=== PATIENT | male | born 1950 | race Caucasian/White ===

== ENCOUNTER 2016-08-03 17:43 | Emergency (ER) | payer MEDICARE ==
[~2016-08-03] VITALS: Ht 167.6 cm; Wt 56.7 kg
[~2016-08-03 17:43] MED LIST: 'PARAFON FORTE500 M1 PO; TRAMADOL HCL50 MG PO
[2016-08-03] MEDS ORDERED: HYDROCODONE BIT1 T11 PO (18:50)
== END 2016-08-03 18:59 | disposition home or self-care (01) ==
LOC: ED 17:43
DX: S82.891A Other fracture of right lower leg, initial encounter for closed fracture (principal); F17.200 Nicotine dependence, unspecified, uncomplicated; Z98.890 Other specified postprocedural states; W17.2XXA Fall into hole, initial encounter; Y93.89 Activity, other specified; Y92.89 Other specified places as the place of occurrence of the external cause; Y99.9 Unspecified external cause status

== ENCOUNTER → 2016-08-26 | Outpatient (CLI) | payer MEDICARE ==
[~2016-08-26] MED LIST changes: +HYDROCODONE BIT1 T11 PO
[2016-08-26 13:15] LABS: BILIRUBIN NEGATIVE (NEGATIVE); BLOOD NEGATIVE (NEGATIVE); CLARITY CLEAR (CLEAR); COLOR YELLOW (YELLOW); GLUCOSE NEGATIVE (NEGATIVE); KETONE NEGATIVE (NEGATIVE); LEUKO ESTERASE TRACE (NEGATIVE); NITRITE NEGATIVE (NEGATIVE); PROTEIN NEGATIVE (NEGATIVE); SPECIFIC GRAVITY <= 1.005 (1.005-1.030); UROBILINOGEN 0.2 E.U./dl (0.2-1.0)
[2016-08-26 13:32] LABS: BUN 3 mg/dl (7-24); CARBON DIOXIDE 28 mmol/L (21-32); CHLORIDE 106 mmol/L (98-107); EST GLOM FILT AFRICAN AMERICAN > 60 ml/min; GLUCOSE 95 mg/dL (65-99); POTASSIUM 4.5 mmol/L (3.5-5.1); SODIUM 142 mmol/L (136-145)
[2016-08-26 13:34] LABS: BASO # 0.1 10*3/uL (0.0-0.1); BASO % 0.9 % (0.0-1.0); EOS # 0.3 10*3/uL (0.0-0.4); EOS % 2.8 % (1.0-4.0); HEMATOCRIT 47.2 % (42.0-52.0); HEMOGLOBIN 16.1 g/dl (14.0-18.0); IG # 0.1 10*3/uL (0.0-0.1); LYMPH # 2.5 10*3/uL (1.3-4.4); LYMPH % 23.8 % (27.0-41.0); MEAN CELL VOLUME 99.4 fl (80.0-94.0); MEAN CORPUSCULAR HGB 33.9 pg (27.0-31.0); MEAN CORPUSCULAR HGB CONC 34.1 g/dl (33.0-37.0); MEAN PLATELET VOLUME 8.6 fl (9.6-12.3); MONO # 1.2 10*3/uL (0.1-1.0); MONO % 11.5 % (3.0-9.0); NEUT # 6.4 10*3/uL (2.3-7.9); NEUT % 60.2 % (47.0-73.0); PLATELET COUNT AUTOMATED 337 10*3/uL (130-400); RED BLOOD COUNT 4.75 10*6/uL (4.50-5.90); RED CELL DISTRI WIDTH 12.1 % (0-14.5); WHITE BLOOD COUNT 10.7 10*3/uL (4.8-10.8)
[2016-08-26 13:45] LABS: BACTERIA TRACE
[2016-08-26 14:04] LABS: HEMOGLOBIN A1c 5.5 % (4.8-5.6)
== END | disposition home or self-care (01) ==
LOC: LAB 11:09
PROVIDERS: Orthopaedic Surgery
DX: Z01.818 Encounter for other preprocedural examination (principal); R79.89 Other specified abnormal findings of blood chemistry; M85.80 Other specified disorders of bone density and structure, unspecified site; S82.401A Unspecified fracture of shaft of right fibula, initial encounter for closed fracture; Z87.891 Personal history of nicotine dependence; X58.XXXA Exposure to other specified factors, initial encounter; Y93.89 Activity, other specified; Y92.89 Other specified places as the place of occurrence of the external cause; Y99.8 Other external cause status

== ENCOUNTER → 2016-09-01 | Day surgery (SDC) | payer MEDICARE ==
[2016-08-26 11:43] VITALS: BP 174/86
[2016-09-01] VITALS (8 sets, daily range): BP systolic 143–177; BP diastolic 64–102
[~2016-09-01] VITALS: Ht 167.6 cm; Wt 59.0 kg
[~2016-09-01] MED LIST changes: +PERCOCET 325 MG1 TA5 PO; +ZOFRAN4 MG PO
--- NOTE | ~2016-09-01 | O ---
[place], [place] OPERATIVE NOTE NAME: MELISSA PRASAD [facility] #: [id number] UNIT #: [id number] ROOM: DOCTOR: CARMELO SALMERON DO BIRTHDATE: [birth year] DOS: 09/01/2016 PREOPERATIVE DIAGNOSIS: Right distal fibula fracture. POSTOPERATIVE DIAGNOSIS: Right distal fibula fracture. OPERATIVE PROCEDURE: Right distal fibula fracture open reduction and internal fixation. SURGEON: Carmelo Salmeron DO FIRST ASSISTANTS: Rochelle and Arielle. ANESTHESIA: OLIVIER Watkins. INDICATION: The patient is a 66-year-old male with a history of a right distal fibula fracture. The patient has had a delay in treatment while waiting on medical clearance as well as his inability to obtain preoperative lab and x-ray. Risks and benefits of the procedure were explained to the patient and his family preoperatively. The preoperative labs, x-rays and medical optimization were obtained. DESCRIPTION OF PROCEDURE: The right ankle was marked in the holding room. The patient was brought to the operative suite. The patient was placed supine on the operative table. A general anesthetic with endotracheal intubation was performed. The patient received Ancef 2 g IV piggyback. Timeout was performed. The right lower extremity was prepped and draped in the usual orthopedic manner. Extremity was elevated and the tourniquet was inflated to 350 mmHg. The lateral incision was marked with a marking pen and made sharply with a scalpel. Subcutaneous tissue was spread down to the level of the distal fibula. The fracture site was identified and cleared of any soft tissue or periosteal debris. The area was copiously irrigated with normal saline. Closed reduction was performed. A 6-hole Synthes 1/3rd tubular plate was bent to conform with the distal fibula. C-arm was used to confirm positioning and reduction. The proximal 3 holes of the plate were drilled and filled with 3.5 cortical screws, 16 mm, 18 mm, 18 mm. The distal portion of the plate was drilled and filled with 4.0 cancellous screw measuring 16 mm, 18 mm, 18 mm. The positioning of the screws and the fracture were evaluated under C arm. The ankle was taken through range of motion flexion, extension, inversion and eversion and found to be stable. The area was copiously irrigated with normal saline. The wound was closed in a layered fashion with 2-0 Vicryl followed by skin yeison. The area was injected with Marcaine 0.5% with epinephrine. Dressing was applied using Xeroform, 4 x 4s and a well-padded posterior splint. The tourniquet was released prior to application of the splint. The anesthetic was reversed. The patient was extubated and taken to recovery room in satisfactory condition. ESTIMATED BLOOD LOSS: 5 mL. [place], [place] OPERATIVE NOTE NAME: MELISSA PRASAD UNIT #: [id number] ROOM: DOCTOR: CARMELO SALMERON DO BIRTHDATE: [birth year] SPECIMENS: None. DRAINS: None. PACKING: None. COMPLICATIONS: None. IMPLANTS: Synthes 6-hole 1/3rd tubular plate, 3.5 mm cortical screws measuring 16 mm, 18 mm, 18 mm and 4.0 cancellous screws measuring 16 mm, 18 mm, 18 mm. CARMELO SALMERON DO CM:OPRECORD:OPERATIVE NOTE [id number] CARMELO SALMERON DO 09/07/16 0054 interface
== END | disposition home or self-care (01) ==
LOC: SDC 08-18 10:15
DX: S82.831A Other fracture of upper and lower end of right fibula, initial encounter for closed fracture (principal); X58.XXXA Exposure to other specified factors, initial encounter; Y93.9 Activity, unspecified; Y92.9 Unspecified place or not applicable; Y99.9 Unspecified external cause status; I10 Essential (primary) hypertension; F17.210 Nicotine dependence, cigarettes, uncomplicated; M85.80 Other specified disorders of bone density and structure, unspecified site; F10.20 Alcohol dependence, uncomplicated; Z98.890 Other specified postprocedural states

== ENCOUNTER 2016-09-13 14:15 | Emergency (ER) | payer MEDICARE ==
[~2016-09-13] VITALS: Ht 167.6 cm; Wt 56.7 kg
[2016-09-13] MEDS ORDERED: IBU-200200 MG PO (14:44)
[2016-09-13 15:21] LABS: BASO # 0.1 10*3/uL (0.0-0.1); BASO % 0.5 % (0.0-1.0); EOS # 0.2 10*3/uL (0.0-0.4); EOS % 1.3 % (1.0-4.0); HEMATOCRIT 50.3 % (42.0-52.0); HEMOGLOBIN 17.2 g/dl (14.0-18.0); IG # 0.1 10*3/uL (0.0-0.1); LYMPH # 2.1 10*3/uL (1.3-4.4); MEAN CELL VOLUME 98.1 fl (80.0-94.0); MEAN CORPUSCULAR HGB 33.5 pg (27.0-31.0); MEAN CORPUSCULAR HGB CONC 34.2 g/dl (33.0-37.0); MEAN PLATELET VOLUME 8.4 fl (9.6-12.3); MONO # 1.4 10*3/uL (0.1-1.0); NEUT # 10.3 10*3/uL (2.3-7.9); NEUT % 72.4 % (47.0-73.0); PLATELET COUNT AUTOMATED 352 10*3/uL (130-400); RED BLOOD COUNT 5.13 10*6/uL (4.50-5.90); WHITE BLOOD COUNT 14.2 10*3/uL (4.8-10.8)
[2016-09-13 15:29] LABS: PROTHROMBIN TIME 10.7 SECONDS (9.0-12.4)
[2016-09-13 15:45] LABS: ALKALINE PHOSPHATASE 66 U/L (45-117); BILIRUBIN, TOTAL 0.5 mg/dl (0.2-1.0); BUN 6 mg/dl (7-24); C-REACTIVE PROTEIN 0.49 MG/DL (0-0.3); CARBON DIOXIDE 24 mmol/L (21-32); CHLORIDE 104 mmol/L (98-107); CPK 66 U/L (39-308); EST GLOM FILT AFRICAN AMERICAN > 60 ml/min; GLUCOSE 98 mg/dL (65-99); MAGNESIUM 2.2 mg/dL (1.5-2.1); POTASSIUM 4.4 mmol/L (3.5-5.1); SGOT/AST 21 IU/L (3-35); SGPT/ALT 18 U/L (12-78); SODIUM 139 mmol/L (136-145); TOTAL PROTEIN 7.9 gm/dL (6.4-8.2); TROPONIN I 0.037 ng/ml (<0.045)
[2016-09-13] MEDS ORDERED: COREG3.125 MG PO (16:10)
== END 2016-09-13 16:16 | disposition home or self-care (01) ==
LOC: ED 14:15
PROVIDERS: Emergency Medicine
DX: I10 Essential (primary) hypertension (principal); M79.604 Pain in right leg; F17.200 Nicotine dependence, unspecified, uncomplicated

== ENCOUNTER → 2016-09-23 | Outpatient (CLI) | payer MEDICARE ==
[~2016-09-23] MED LIST changes: +COREG3.125 MG PO; +IBU-200200 MG PO
== END | disposition home or self-care (01) ==
LOC: ORTHO 13:41
DX: T81.4XXA Infection following a procedure, initial encounter (principal)

== ENCOUNTER → 2016-10-21 | Outpatient (CLI) | payer MEDICARE | END | disposition home or self-care (01) | LOC: ORTHO 03:02 | DX: S82.401D Unspecified fracture of shaft of right fibula, subsequent encounter for closed fracture with routine healing (principal); X58.XXXD Exposure to other specified factors, subsequent encounter ==

== ENCOUNTER → 2016-12-22 | Outpatient (CLI) | payer MEDICARE | END | disposition home or self-care (01) | LOC: ORTHO 00:22 | DX: S82.891D Other fracture of right lower leg, subsequent encounter for closed fracture with routine healing (principal); M25.471 Effusion, right ankle; X58.XXXD Exposure to other specified factors, subsequent encounter ==

== ENCOUNTER 2018-08-13 21:16 | Emergency (ER) | payer MEDICARE ==
[~2018-08-13] VITALS: Ht 167.6 cm; Wt 59.0 kg
--- NOTE | ~2018-08-13 | EKG ---
[place], [place] ELECTROCARDIOGRAM REPORT NAME: MELISSA PRASAD UNIT #: [id number] ROOM: DOCTOR: EPIPHANY DRAFT REPORT BIRTHDATE: [birth year] [facility] Test Date: 2018-08-13 Test Time: 21:26:24 Pat Name: MELISSA PRASAD Department: ER Room: Gender: Rigging Worker: : 1950 Requested By: ELVIE FERNANDES Order Number: [id number] Reading MD: Maddie Lin MD Measurements Intervals [place] Rate: 77 P: 69 [place]: 238 QRS: 46 QRSD: 90 T: 79 QT: 440 QTc: 499 Interpretive Statements Sinus rhythm Prolonged [place] interval Abnormal R-wave progression, early transition Abnormal inferior Q waves Repol abnrm suggests ischemia, diffuse leads Electronically Signed On 08-17-2018 9:33:42 PDT by Maddie Lin MD CM:EKGRPT:ELECTROCARDIOGRAM REPORT 25 ELVIE MARTÍNEZ DRAFT REPORT ELVIE FERNANDES DO
--- NOTE | ~2018-08-13 | EKG ---
[place], [place] ELECTROCARDIOGRAM REPORT NAME: MELISSA PRASAD UNIT #: [id number] ROOM: DOCTOR: EPIPHMEGAN DRAFT REPORT BIRTHDATE: [birth year] [facility] Test Date: 2018-08-14 Test Time: 00:21:46 Pat Name: MELISSA PRASAD Department: ER Room: Gender: M Chief Cruiser: Shaina Lim : 1950 Requested By: ELVIE FERNANDES Order Number: [id number] Reading MD: Maddie Lin MD Measurements Intervals [place] Rate: 81 P: 88 [place]: 234 QRS: 51 QRSD: 100 T: -21 QT: 464 QTc: 539 Interpretive Statements Sinus with first degree AV block Sinus pause LVH with secondary repolarization abnormality Inferior infarct, old Prolonged QT interval Baseline wander in lead(s) II,aVF Electronically Signed On 08-17-2018 9:35:46 PDT by Maddie Lin MD CM:EKGRPT:ELECTROCARDIOGRAM REPORT [id number] ELVIE MARTÍNEZ DRAFT REPORT ELVIE FERNANDES DO
[2018-08-13 21:55] LABS: HEMATOCRIT 42.5 % (42.0-52.0); HEMOGLOBIN 14.3 g/dl (14.0-18.0); MEAN CELL VOLUME 100.7 fl (80.0-94.0); MEAN CORPUSCULAR HGB 33.9 pg (27.0-31.0); MEAN CORPUSCULAR HGB CONC 33.6 g/dl (33.0-37.0); MEAN PLATELET VOLUME 10.1 fl (9.6-12.3); PLATELET COUNT AUTOMATED 263 10*3/uL (130-400); RED BLOOD COUNT 4.22 10*6/uL (4.50-5.90); RED CELL DISTRI WIDTH 12.4 % (0-14.5); WHITE BLOOD COUNT 20.3 10*3/uL (4.8-10.8)
[2018-08-13 22:06] LABS: ACT PARTIAL THROMBO TIME 21.9 SECONDS (20.0-32.1)
[2018-08-13 22:12] LABS: ALBUMIN 3.8 gm/dl (3.1-4.5); ALKALINE PHOSPHATASE 56 U/L (45-117); BUN 11 mg/dl (7-24); CHLORIDE 91 mmol/L (98-107); CREATININE 0.91 mg/dL (0.70-1.30); POTASSIUM 3.7 mmol/L (3.5-5.1); SGOT/AST 102 IU/L (3-35); SGPT/ALT 52 U/L (12-78); SODIUM 131 mmol/L (136-145); TOTAL PROTEIN 7.7 gm/dL (6.4-8.2)
[2018-08-13 22:37] LABS: PLATELET SUFFICIENCY NORMAL (NORMAL); TOTAL CELLS COUNTED 100 #CELLS
== END 2018-08-14 01:49 | disposition short-term general hospital (02) ==
LOC: ED 21:16
PROVIDERS: Student in an Organized Health Care Education/Training Program
DX: I44.1 Atrioventricular block, second degree (principal); I21.4 Non-ST elevation (NSTEMI) myocardial infarction; I10 Essential (primary) hypertension; F17.200 Nicotine dependence, unspecified, uncomplicated; Z79.899 Other long term (current) drug therapy

== ENCOUNTER 2019-11-20 19:02 | Emergency (ER) | payer MEDICARE ==
[~2019-11-20] VITALS: Ht 167.6 cm; Wt 54.4 kg
== END 2019-11-20 21:08 | disposition home or self-care (01) ==
LOC: ED 19:02
DX: S92.511A Displaced fracture of proximal phalanx of right lesser toe(s), initial encounter for closed fracture (principal); S90.01XA Contusion of right ankle, initial encounter; Z98.890 Other specified postprocedural states; X50.1XXA Overexertion from prolonged static or awkward postures, initial encounter; Y93.89 Activity, other specified; Y92.89 Other specified places as the place of occurrence of the external cause; Y99.9 Unspecified external cause status

== ENCOUNTER 2020-08-09 16:46 | Inpatient (IN) | payer MEDICARE ==
[~2020-08-09] VITALS: Ht 167.6 cm; Wt 59.7 kg
[~2020-08-09 16:46] MED LIST changes: +ASPIRIN ADULT L81 M2 PO; +FEROSUL325 MG PO; +Lopressor25 MG PO; +REQUIP0.25 M1 PO; +ROPINIROLE HY0.25 MG PO; +SEPTDS PO; +Synthroid,Levo25 MCG PO; +TAMSULOSIN HCL0.4 MG PO; +TRAZODONE50 MG PO
[2020-08-09 16:51] VITALS: BP 166/91
[2020-08-09 17:46] LABS: HEMATOCRIT 46.6 % (42.0-52.0); MEAN CELL VOLUME 99.1 fl (80.0-94.0); MEAN CORPUSCULAR HGB 32.8 pg (27.0-31.0); MEAN PLATELET VOLUME 9.2 fl (9.6-12.3); PLATELET COUNT AUTOMATED 505 10*3/uL (130-400); RED CELL DISTRI WIDTH 12.4 % (0-14.5); WHITE BLOOD COUNT 14.9 10*3/uL (4.8-10.8)
[2020-08-09 18:00] LABS: ACT PARTIAL THROMBO TIME 27.7 SECONDS (20.0-32.1); INTERNATIONAL NORM RATIO 1.1 (2.0-3.5)
[2020-08-09 18:04] LABS: BASOPHILS 1 % (0-1); TOTAL CELLS COUNTED 100 #CELLS
[2020-08-09 18:05] LABS: PLATELET SUFFICIENCY HIGH (NORMAL)
[2020-08-09 18:06] LABS: ROULEAUX SLIGHT
[2020-08-09 18:09] LABS: ALBUMIN 3.2 gm/dl (3.1-4.5); ALKALINE PHOSPHATASE 64 U/L (45-117); BUN 4 mg/dl (7-24); CHLORIDE 105 mmol/L (98-107); CPK 106 U/L (39-308); CREATININE 0.88 mg/dL (0.70-1.30); ETHYL ALCOHOL < 3.0 mg/dl (<3); POTASSIUM 3.7 mmol/L (3.5-5.1); SGOT/AST 14 IU/L (3-35); SGPT/ALT 15 U/L (12-78); SODIUM 138 mmol/L (136-145); TOTAL PROTEIN 8.1 gm/dL (6.4-8.2); TROPONIN I 0.017 ng/ml (<0.045)
[2020-08-09 18:12] LABS: BILIRUBIN Negative (Negative); BLOOD 1+ (Negative); CLARITY Cloudy (Clear); COLOR Yellow (Yellow); GLUCOSE Negative (Negative); KETONE Negative (Negative); LEUKO ESTERASE 3+ (Negative); NITRITE Positive (Negative); PH 7.5 (4.5-8.0); SPECIFIC GRAVITY <= 1.005 (1.001-1.030); UROBILINOGEN 0.2 E.U./dl (0.0-1.0)
[2020-08-09 18:26] LABS: WBC TNTC wbc/hpf (0-5)
[2020-08-09 19:52] VITALS: BP 144/78
[2020-08-09 20:35] VITALS: BP 183/86
[2020-08-10] VITALS: BP 139/67
[2020-08-10 06:18] LABS: ALBUMIN 2.6 gm/dl (3.1-4.5); BUN 6 mg/dl (7-24); CHLORIDE 110 mmol/L (98-107); POTASSIUM 3.7 mmol/L (3.5-5.1); SGOT/AST 14 IU/L (3-35); SGPT/ALT 13 U/L (12-78); SODIUM 141 mmol/L (136-145); TOTAL PROTEIN 6.4 gm/dL (6.4-8.2)
[2020-08-10 06:19] LABS: ALKALINE PHOSPHATASE 51 U/L (45-117); CREATININE 0.78 mg/dL (0.70-1.30)
[2020-08-10 06:20] LABS: HEMATOCRIT 41.3 % (42.0-52.0); MEAN CELL VOLUME 101.2 fl (80.0-94.0); MEAN CORPUSCULAR HGB 32.8 pg (27.0-31.0); MEAN CORPUSCULAR HGB CONC 32.4 g/dl (33.0-37.0); MEAN PLATELET VOLUME 9.5 fl (9.6-12.3); PLATELET COUNT AUTOMATED 459 10*3/uL (130-400); RED BLOOD COUNT 4.08 10*6/uL (4.50-5.90); RED CELL DISTRI WIDTH 12.6 % (0-14.5); WHITE BLOOD COUNT 12.5 10*3/uL (4.8-10.8)
[2020-08-10 07:16] LABS: BASOPHILS 1 % (0-1); POLYCHROMASIA SLIGHT; TOTAL CELLS COUNTED 100 #CELLS
[2020-08-10 07:17] LABS: PLATELET SUFFICIENCY HIGH (NORMAL); ROULEAUX SLIGHT
[2020-08-10 08:00] VITALS: BP 136/68
[2020-08-10 12:00] VITALS: BP 129/64
[2020-08-10 16:00] VITALS: BP 128/60
[2020-08-10 20:00] VITALS: BP 96/44
[2020-08-11] VITALS: BP 119/50
[2020-08-11 05:35] LABS: FREE T4 0.89 ng/dl (0.76-1.46)
[2020-08-11 05:40] LABS: THYROID STIM HORMONE (HS) 2.52 uIU/ml (0.358-4.75)
[2020-08-11 05:51] LABS: BASO # 0.1 10*3/uL (0.0-0.1); BASO % 0.7 % (0.0-1.0); EOS # 0.2 10*3/uL (0.0-0.4); EOS % 1.8 % (1.0-4.0); HEMATOCRIT 39.5 % (42.0-52.0); LYMPH # 1.8 10*3/uL (1.3-4.4); LYMPH % 16.2 % (27.0-41.0); MEAN CELL VOLUME 102.3 fl (80.0-94.0); MEAN CORPUSCULAR HGB 32.9 pg (27.0-31.0); MEAN CORPUSCULAR HGB CONC 32.2 g/dl (33.0-37.0); MEAN PLATELET VOLUME 9.6 fl (9.6-12.3); MONO # 1.4 10*3/uL (0.1-1.0); NEUT # 7.4 10*3/uL (2.3-7.9); NEUT % 67.3 % (47.0-73.0); PLATELET COUNT AUTOMATED 479 10*3/uL (130-400); RED BLOOD COUNT 3.86 10*6/uL (4.50-5.90); RED CELL DISTRI WIDTH 12.9 % (0-14.5)
[2020-08-11 08:00] VITALS: BP 148/70
[2020-08-11 12:00] VITALS: BP 105/63
[2020-08-11 16:00] VITALS: BP 122/49
[2020-08-11 20:00] VITALS: BP 122/52
[2020-08-12] VITALS: BP 131/57
[2020-08-12 08:00] VITALS: BP 126/90
[2020-08-12] MEDS ORDERED: ATORVASTATIN CA20 M1 PO (11:16)
[2020-08-12] MEDS ORDERED: PROTONIX40 MG PO (11:17)
[2020-08-12 12:00] VITALS: BP 114/81
[2020-08-12 16:22] VITALS: BP 116/71
[2020-08-12 20:07] VITALS: BP 129/62
[2020-08-13] VITALS: BP 115/87
[2020-08-13 05:35] LABS: BUN 6 mg/dl (7-24); CHLORIDE 108 mmol/L (98-107); CREATININE 0.76 mg/dL (0.70-1.30); POTASSIUM 4.2 mmol/L (3.5-5.1); SODIUM 139 mmol/L (136-145)
[2020-08-13 06:18] LABS: BASO # 0.1 10*3/uL (0.0-0.1); BASO % 0.7 % (0.0-1.0); EOS # 0.2 10*3/uL (0.0-0.4); EOS % 2.3 % (1.0-4.0); LYMPH # 2.4 10*3/uL (1.3-4.4); LYMPH % 23.5 % (27.0-41.0); MEAN CELL VOLUME 102.5 fl (80.0-94.0); MEAN CORPUSCULAR HGB CONC 31.2 g/dl (33.0-37.0); MEAN PLATELET VOLUME 9.7 fl (9.6-12.3); MONO # 1.1 10*3/uL (0.1-1.0); MONO % 10.9 % (3.0-9.0); NEUT # 6.4 10*3/uL (2.3-7.9); NEUT % 61.8 % (47.0-73.0); PLATELET COUNT AUTOMATED 457 10*3/uL (130-400); RED CELL DISTRI WIDTH 12.4 % (0-14.5); WHITE BLOOD COUNT 10.3 10*3/uL (4.8-10.8)
[2020-08-13 08:00] VITALS: BP 126/70
[2020-08-13 12:00] VITALS: BP 111/51
[2020-08-13] MEDS ORDERED: B121000 MCG/1 IM ×3 (13:17→13:18)
[2020-08-13] MEDS ORDERED: CIPRO500 MG PO (13:17)
== END 2020-08-13 15:59 | DRG 872 ==
LOC: ED 16:46 → EDHOLD 18:27 → 4E 18:27
PROVIDERS: Emergency Medicine; Student in an Organized Health Care Education/Training Program; ADMIT Internal Medicine; ATTEND Internal Medicine
DX: A41.9 Sepsis, unspecified organism (principal); N39.0 Urinary tract infection, site not specified; S46.011A Strain of muscle(s) and tendon(s) of the rotator cuff of right shoulder, initial encounter; R26.2 Difficulty in walking, not elsewhere classified; Z20.822 Contact with and (suspected) exposure to COVID-19; I25.10 Atherosclerotic heart disease of native coronary artery without angina pectoris; N40.0 Benign prostatic hyperplasia without lower urinary tract symptoms; K21.9 Gastro-esophageal reflux disease without esophagitis; I10 Essential (primary) hypertension; G25.81 Restless legs syndrome; E03.9 Hypothyroidism, unspecified; D53.9 Nutritional anemia, unspecified; R31.9 Hematuria, unspecified; D72.829 Elevated white blood cell count, unspecified; E87.8 Other disorders of electrolyte and fluid balance, not elsewhere classified; R73.9 Hyperglycemia, unspecified; D47.3 Essential (hemorrhagic) thrombocythemia; N41.9 Inflammatory disease of prostate, unspecified; B96.20 Unspecified Escherichia coli [E. coli] as the cause of diseases classified elsewhere; Z95.1 Presence of aortocoronary bypass graft; I25.2 Old myocardial infarction; Z87.81 Personal history of (healed) traumatic fracture; Z81.1 Family history of alcohol abuse and dependence; Z72.89 Other problems related to lifestyle; W18.39XA Other fall on same level, initial encounter; Y93.89 Activity, other specified; Y92.89 Other specified places as the place of occurrence of the external cause; Y99.8 Other external cause status

== ENCOUNTER → 2022-02-09 | Outpatient (CLI) | payer MEDICARE ==
[~2022-02-09] MED LIST changes: +ATORVASTATIN CA20 M1 PO; +B121000 MCG/1 IM; +CIPRO500 MG PO; +PROTONIX40 MG PO
== END | disposition home or self-care (01) ==
LOC: LAB 13:13
PROVIDERS: ATTEND Internal Medicine
DX: E83.52 Hypercalcemia (principal)

== ENCOUNTER → 2022-05-30 | Outpatient (CLI) | payer OTHER, MEDICARE | END | disposition home or self-care (01) | LOC: US 04-20 10:30 | PROVIDERS: ATTEND Internal Medicine | DX: Z13.6 Encounter for screening for cardiovascular disorders (principal) ==

== ENCOUNTER → 2022-08-31 | Outpatient (CLI) | payer OTHER | END | disposition home or self-care (01) | LOC: CARD 00:05 | PROVIDERS: ATTEND Internal Medicine | DX: I08.1 Rheumatic disorders of both mitral and tricuspid valves (principal); I21.19 ST elevation (STEMI) myocardial infarction involving other coronary artery of inferior wall ==

== ENCOUNTER → 2023-03-24 | Outpatient (CLI) | payer OTHER | END | disposition home or self-care (01) | LOC: MRI 00:23 | PROVIDERS: ATTEND Psychiatry & Neurology Neurology | DX: I67.82 Cerebral ischemia (principal); G31.9 Degenerative disease of nervous system, unspecified; M50.223 Other cervical disc displacement at C6-C7 level; M50.221 Other cervical disc displacement at C4-C5 level; M50.222 Other cervical disc displacement at C5-C6 level; M48.02 Spinal stenosis, cervical region; M50.21 Other cervical disc displacement, high cervical region; M47.812 Spondylosis without myelopathy or radiculopathy, cervical region ==

== ENCOUNTER → 2023-04-10 | Outpatient (CLI) | payer OTHER | END | disposition home or self-care (01) | LOC: LAB 12:15 | PROVIDERS: ATTEND Psychiatry & Neurology Neurology | DX: R26.9 Unspecified abnormalities of gait and mobility (principal); Z79.899 Other long term (current) drug therapy ==

== ENCOUNTER → 2023-08-28 | Outpatient (CLI) | payer OTHER | END | disposition home or self-care (01) | LOC: RAD 12:50 | PROVIDERS: ATTEND Internal Medicine | DX: S92.331D Displaced fracture of third metatarsal bone, right foot, subsequent encounter for fracture with routine healing (principal); M79.671 Pain in right foot; S92.351D Displaced fracture of fifth metatarsal bone, right foot, subsequent encounter for fracture with routine healing; M19.071 Primary osteoarthritis, right ankle and foot; X58.XXXD Exposure to other specified factors, subsequent encounter ==

== ENCOUNTER → 2024-02-27 | Outpatient (CLI) | payer OTHER ==
[2024-02-27 13:08] LABS: BILIRUBIN Negative (Negative); BLOOD Negative (Negative); CLARITY Clear (Clear); COLOR Yellow (Yellow); GLUCOSE Negative (Negative); KETONE Negative (Negative); LEUKO ESTERASE Trace (Negative); NITRITE Negative (Negative); SPECIFIC GRAVITY 1.015 (1.001-1.030); UROBILINOGEN 0.2 E.U./dl (0.0-1.0)
[2024-02-27 13:59] LABS: BACTERIA 1+; RBC 0-2 rbc/hpf (0-2)
== END | disposition home or self-care (01) ==
LOC: LAB 12:16
PROVIDERS: ATTEND Nurse Practitioner Gerontology
DX: Z13.89 Encounter for screening for other disorder (principal); C61 Malignant neoplasm of prostate; N32.0 Bladder-neck obstruction

== ENCOUNTER → 2025-01-08 | Outpatient (CLI) | payer OTHER ==
[~2025-01-08] MED LIST changes: +ALBUTEROL SULFATE HF; +BUDESONIDE-FO10.2 G1 INH; +GABAPENTIN100 M2 PO; +IBU800 M2 PO
== END | disposition home or self-care (01) ==
LOC: RAD 14:43
PROVIDERS: ATTEND Internal Medicine
DX: M47.817 Spondylosis without myelopathy or radiculopathy, lumbosacral region (principal); M48.07 Spinal stenosis, lumbosacral region; M54.50 Low back pain, unspecified; M85.88 Other specified disorders of bone density and structure, other site

== ENCOUNTER → 2025-02-24 | Outpatient (CLI) | payer OTHER ==
[2025-02-24 13:41] LABS: BILIRUBIN Negative (Negative); BLOOD 1+ (Negative); CLARITY Clear (Clear); COLOR Yellow (Yellow); KETONE Negative (Negative); LEUKO ESTERASE 2+ (Negative); NITRITE Negative (Negative); PH 5.5 (4.5-8.0); SPECIFIC GRAVITY 1.010 (1.001-1.030); UROBILINOGEN 0.2 E.U./dl (0.0-1.0)
[2025-02-24 13:55] LABS: BACTERIA 1+; WBC 16-20 wbc/hpf (0-5)
== END | disposition home or self-care (01) ==
LOC: LAB 12:42
PROVIDERS: ATTEND Nurse Practitioner Gerontology
DX: C61 Malignant neoplasm of prostate (principal)